=== PATIENT | female | born 1970 | race Two or more races ===

== ENCOUNTER 2017-05-07 07:37 | Emergency (ER) | payer OTHER ==
[2017-05-07 07:48] VITALS: TEMP 98.2; BMI 25.2
--- NOTE | 2017-05-07 09:33 | PDOC ---
History of Present Illness - General History Source: Patient Exam Limitations: No Limitations - History of Present Illness Initial Comments: 05/07/17 13:21 The patient is a 47 year old female with a significant PMH of gastritis, unknown 'ovarian problems' who presents to the emergency department with left sided abdominal pain that began at approximately 4PM yesterday. Patient describes the LLQ pain as constant, non-radiating that worsens when walking or bending over and improves with lying down. The patient states she has the LLQ pain woke her up from her sleep last night. The patient denies N/V, any changes in bowel movement, hematuria, or blood in stool. Her LMP was Apr 27. The patient denies any recent exercise or heavy lifting. The patient denies similar symptoms in the past. The patient denies chest pain, shortness of breath, headache and dizziness. Denies fever, chills, nausea, vomit, diarrhea and constipation. Denies dysuria, frequency, urgency and hematuria. Allergies: NKA Past surgical history: None reported. Social history: No reported alcohol, drug, or cigarette use. PCP: Dr. Nassar <Leilani Mcgee - Last Filed: 05/07/17 13:21> <Gonzalez Kitchen - Last Filed: 05/07/17 19:07> - General Chief Complaint: Pain Stated Complaint: LT SIDE PAIN Time Seen by Provider: 05/07/17 08:35 Past History <Leilani Mcgee - Last Filed: 05/07/17 13:21> - Past Medical History COPD: No GI Disorders: Yes (GASTRITIS) - Suicide/Smoking/Psychosocial Hx Smoking History: Never smoked Have you smoked in the past 12 months: No Information on smoking cessation initiated: No Hx Alcohol Use: No Drug/Substance Use Hx: No Substance Use Type: None <Gonzalez Kitchen - Last Filed: 05/07/17 19:07> - Past Medical History Allergies/Adverse Reactions: Allergies Allergy/AdvReac Type Severity Reaction Status Date / Time No Known Allergies Allergy Verified 05/07/17 07:43 Home Medications: Ambulatory Orders levoFLOXacin [Levaquin] 750 mg PO ONCE #7 tab 05/07/17 metroNIDAZOLE [Flagyl -] 500 mg PO DAILY #14 tablet 05/07/17 Review of Systems - Review of Systems Able to Perform ROS?: Yes Comments:: 05/07/17 13:21 CONSTITUTIONAL: No reported: Fever, Chills, Diaphoresis, Generalized Weakness, Malaise, Loss of Appetite HEENT: No reported: Rhinorrhea, Nasal Congestion, Throat Pain, Throat Swelling, Difficulty Swallowing, Mouth Swelling, Ear Pain, Eye Pain, Visual Changes CARDIOVASCULAR: No reported: Chest Pain, Syncope, Palpitations, Irregular Heart Rate, Lightheadedness, Peripheral Edema RESPIRATORY: No reported: Cough, Shortness of Breath, SOB with Exertion, Orthopnea, Wheezing , Stridor, Hemoptysis GASTROINTESTINAL: No reported: Abdominal Distension, Nausea, Vomiting, Diarrhea, Constipation, Melena, Hematochezia Reported: LLQ pain. GENITOURINARY: No reported: Dysuria, Frequency, Urgency, Hesitancy, Flank Pain, Genital Pain MUSCULOSKELETAL: No reported: Myalgia, Arthralgia, Joint Swelling, Back pain, Neck Pain SKIN: No reported: Rash, Itching, Pallor HEMEATOLOGIC/IMMUNOLOGIC: No reported: Easy Bleeding, Easy Bruising, Lymphadenopathy, Frequent infections ENDOCRINE: No reported: Unexplained Weight Gain, Unexplained Weight Loss, Heat Intolerance , Cold Intolerance NEUROLOGIC: No reported: Headache, Focal Weakness, Paresthesias, Vertigo, Lightheadedness, Unsteady Gait, Seizure, Mental Status Changes, Incontinence PSYCHIATRIC: No reported: Anxiety, Depression <Leilani Mcgee - Last Filed: 05/07/17 13:21> *Physical Exam - Vital Signs Last Vital Signs Temp Pulse Resp BP Pulse Ox 98.2 F 83 18 104/72 100 05/07/17 07:44 05/07/17 11:44 05/07/17 07:44 05/07/17 11:44 05/07/17 11:44 - Physical Exam Comments: 05/07/17 13:21 GENERAL: The patient is awake, alert, and fully oriented, Nontoxic - in no acute distress. HEAD: Normocephalic, atraumatic. EYES: extraocular movements intact, sclera anicteric, conjunctiva clear. ENT: Normal voice, Moist mucous membranes. NECK: Normal range of motion, supple LUNGS: Breath sounds equal, clear to auscultation bilaterally. No wheezes, no rhonchi, no rales. HEART: Regular rate and rhythm, without murmur, rub or gallop. ABDOMEN: (+) LLQ tenderness. Soft, normoactive bowel sounds. No guarding, no rebound.No CVA tenderness EXTREMITIES: Normal range of motion, no edema. No clubbing or cyanosis. No cords, erythema, or tenderness. NEUROLOGICAL: No facial assymetry, Normal speech, PSYCH: Normal mood, normal affect. SKIN: Warm, Dry, normal turgor, <Leilani Mcgee - Last Filed: 05/07/17 13:21> - Vital Signs Last Vital Signs Temp Pulse Resp BP Pulse Ox 98.2 F 90 18 124/79 100 05/07/17 07:44 05/07/17 07:44 05/07/17 07:44 05/07/17 07:44 05/07/17 07:44 <Gonzalez Kitchen - Last Filed: 05/07/17 19:07> Heart Score/ECG Review - ECG Impressions Comment:: 05/07/17 10:59 Twelve-lead EKG was performed and reviewed by me. There is normal sinus rhythm with a normal rate. Rate of 84 The axis is normal. The intervals are normal. There is normal R wave progression Nonspecific T wave abnormality <Gonzalez Kitchen - Last Filed: 05/07/17 19:07> ED Treatment Course - LABORATORY CBC & Chemistry Diagram: 05/07/17 10:00 05/07/17 10:00 - ADDITIONAL ORDERS Additional order review: Laboratory Results 05/07/17 05/07/17 05/07/17 10:23 10:00 10:00 Sodium 139 Potassium 4.0 Chloride 105 Carbon Dioxide 27 Anion Gap 7 L BUN 7 Creatinine 0.3 L Creat Clearance w eGFR > 60 Random Glucose 91 Calcium 8.9 Total Bilirubin 0.8 AST 21 ALT 37 Alkaline Phosphatase 68 Total Protein 6.9 Albumin 3.8 Serum , Qual Negative Urine Color Colorless Urine Appearance Clear Urine pH 7.0 Ur Specific [place] 1.005 Urine Protein Negative Urine Glucose (UA) Negative Urine Ketones Negative Urine Blood 1+ H Urine Nitrite Negative Urine Bilirubin Negative Urine Urobilinogen Negative Ur Leukocyte Esterase Negative Urine WBC (Auto) <1 Urine RBC (Auto) <1 Ur Epithelial Cells Rare Urine Bacteria Rare 05/07/17 10:00 RBC 4.26 MCV 92.7 MCHC 32.9 RDW 13.5 MPV 9.7 Neutrophils % 82.1 Lymphocytes % 11.3 Monocytes % 5.8 Eosinophils % 0.5 Basophils % 0.3 <Leilani Mcgee - Last Filed: 05/07/17 13:21> - LABORATORY CBC & Chemistry Diagram: 05/07/17 10:00 05/07/17 10:00 <Gonzalez Kitchen - Last Filed: 05/07/17 19:07> Medical Decision Making - Medical Decision Making 05/07/17 09:28 47y F pmhx gastritis, 'ovarian problems', presents with L sided abdomnal pain that started approx 4pm yesterday, Pain is constant, nonradiating, worse when sh eis walking or bendering over, improved with lying down. Pt endorses having pain last night. no associated f/c, cp, cough, n/v, hematuria, diarrhea, bpr, melena, on exam pt with pain in the LLQ mild LCVA tenderness no rebound/guarding ddx: kidney stone, uti, diverticulitis, ovarian cyst will r/o will ck ua, cbc, cmp pt declines pain meds at this time A portion of this note was documented by scribe services under my direction. I have reviewed the details of the note, within reason, and agree with the documentation with the following case summary and management plan written by me 05/07/17 14:[address] noted for acute diverticulitis labs reviewed no systemic complaints including fever no signs of complications on dCT including abcess/perf i feel pt would be a good outpatient candidate will give her some abx will reassess and possible dc <Gonzalez Kitchen - Last Filed: 05/07/17 19:07> *DC/Admit/Observation/Transfer - Attestations Scribe Attestion: 05/07/17 13:22 Documentation prepared by Leilani Mcgee, acting as medical staff credentialing coordinator for Gonzalez Kitchen MD. <Leilani Mcgee - Last Filed: 05/07/17 13:21> - Discharge Dispostion Admit: No <Gonzalez Kitchen - Last Filed: 05/07/17 19:07> Diagnosis at time of Disposition: Diverticulitis - Discharge Dispostion Disposition: HOME Condition at time of disposition: Improved - Referrals Referrals: Mónica Nassar [Primary Care Provider] - - Patient Instructions Printed Discharge Instructions: DI for Diverticulitis Additional Instructions: You have diverticulitis. Take the antibiotics as prescribed. You may take some Tylenol for the pain. Return to the emergency department immediately with ANY new, persistent or worsening symptoms including worsening abdominal pain, fevers, inability to tolerate oral intake, or any other concerns. Stay well hydrated. You MUST call and follow up with your doctor or GI doctor within 3-4 days. Your emergency department visit is not complete without a followup with your doctor for reevaluation. Please make sure your doctor reviews the results of your emergency evaluation. Print Language: CROATIAN - Post Discharge Activity
[2017-05-07 10:28] LABS: BASO % 0.3 % (0-2.0); EOS % 0.5 % (0-4.5); HEMATOCRIT 39.5 % (32.4-45.2); LYMPH % 11.3 % (8-40); MCH 30.5 pg (25.7-33.7); MCHC 32.9 g/dl (32.0-36.0); MEAN CELL VOLUME 92.7 fl (80-96); MEAN PLT VOLUME 9.7 fl (7.5-11.1); MONO % 5.8 % (3.8-10.2); NEUT % 82.1 % (42.8-82.8); PLATELET COUNT 211 K/MM3 (134-434); RBC 4.26 M/mm3 (3.60-5.2); RDW 13.5 % (11.6-15.6); WHITE BLOOD COUNT 10.9 K/mm3 (4.0-10.0)
[2017-05-07 11:04] LABS: URINE APPEARANCE CLEAR; URINE BILIRUBIN NEGATIVE (NEGATIVE); URINE BLOOD 1+ (NEGATIVE); URINE COLOR COLORLESS; URINE GLUCOSE (UA) NEGATIVE (NEGATIVE); URINE KETONE NEGATIVE (NEGATIVE); URINE LEUK ESTERASE NEGATIVE (NEGATIVE); URINE NITRITE NEGATIVE (NEGATIVE); URINE PROTEIN NEGATIVE (NEGATIVE); URINE UROBILINOGEN NEGATIVE mg/dL (0.2-1.0)
[2017-05-07 11:32] LABS: ALBUMIN 3.8 g/dl (3.4-5.0); ANION GAP 7 (8-16); BLOOD UREA NITROGEN 7 mg/dL (7-18); CALCIUM 8.9 mg/dL (8.5-10.1); CHLORIDE 105 mmol/L (98-107); CO2 27 mmol/L (21-32); CREATININE 0.3 mg/dL (0.55-1.02); GLUCOSE,RANDOM 91 mg/dL (74-106); SGOT/AST 21 U/L (15-37); SGPT/ALT 37 U/L (12-78); SODIUM 139 mmol/L (136-145)
[2017-05-07 11:34] LABS: ALK PHOS 68 U/L (45-117); BILIRUBIN,TOTAL 0.8 mg/dL (0.2-1.0); TOT PROT 6.9 g/dl (6.4-8.2)
[2017-05-07 11:36] LABS: EPI CELLS RARE /HPF (FEW); URINE BACTERIA RARE /hpf (NONE SEEN)
--- NOTE | 2017-05-07 14:10 | EKG ---
Test Reason : Blood Pressure : / mmHG Vent. Rate : 084 BPM Atrial Rate : 084 BPM P-R Int : 152 ms QRS Dur : 078 ms QT Int : 384 ms P-R-T Axes : 062 047 041 degrees QTc Int : 453 ms NORMAL SINUS RHYTHM T WAVE ABNORMALITY, CONSIDER ANTERIOR ISCHEMIA ABNORMAL ECG WHEN COMPARED WITH ECG OF 04-AUG-2007 16:48, T WAVE INVERSION NOW EVIDENT IN ANTERIOR LEADS Confirmed by MD Tommy, Brent ([id number]) on 05/07/2017 2:09:30 PM Referred By: Confirmed By:Brent Sanders MD
[2017-05-07 16:17] VITALS: BP 96/48; PULSE 92
== END 2017-05-07 17:21 | disposition home or self-care (01) ==
LOC: JER 07:37
DX: K57.92 Diverticulitis of intestine, part unspecified, without perforation or abscess without bleeding (principal)
CPT/HCPCS: 36415; 74176; 80053; 81003; 81015; 84703; 85025; 93005; 93010; 96365; 96368; 99283-25

== ENCOUNTER 2017-12-25 09:03 | Emergency (ER) | payer OTHER ==
[2017-12-25 09:11] VITALS: BP 136/77; PULSE 88; TEMP 98.5; BMI 25.0
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
== END 2017-12-25 09:56 | disposition home or self-care (01) ==
LOC: JERFT 09:03
DX: S13.4XXA Sprain of ligaments of cervical spine, initial encounter (principal); V43.52XA Car driver injured in collision with other type car in traffic accident, initial encounter; Y92.412 Parkway as the place of occurrence of the external cause; Y93.89 Activity, other specified; Y99.8 Other external cause status
CPT/HCPCS: 99281-25

== ENCOUNTER 2018-11-10 22:52 | Inpatient (IN) | payer OTHER ==
--- NOTE | 2018-11-10 23:40 | PDOC ---
History of Present Illness - General Chief Complaint: Pain Stated Complaint: ABD PAIN Time Seen by Provider: 11/10/18 23:36 History Source: Patient - History of Present Illness Initial Comments: 11/10/18 23:37 48 year old female c/o suprapubic pain when the pain started today. c/o diarrhea and subjective fever x 3 days.denies diarrhea now, dysuria, flank pain just visited [facility] week ago. PMHXdiverticulitis, high cholesterol, gastritis 11/10/18 23:39 Past History - Past Medical History Allergies/Adverse Reactions: Allergies Allergy/AdvReac Type Severity Reaction Status Date / Time No Known Allergies Allergy Verified 12/25/17 09:11 Home Medications: Ambulatory Orders Cyclobenzaprine HCl 10 mg PO Q8H PRN #14 tablet 12/25/17 Naproxen [Naprosyn -] 500 mg PO BID #30 tablet 12/25/17 CVA: No COPD: No GI Disorders: Yes (GASTRITIS) - Suicide/Smoking/Psychosocial Hx Smoking History: Never smoked Have you smoked in the past 12 months: No Hx Alcohol Use: No Drug/Substance Use Hx: No Substance Use Type: None Review of Systems - Review of Systems Able to Perform ROS?: Yes Is the patient limited Thai proficient: No Constitutional: Yes: Fever HEENTM: No: Symptoms Reported, See HPI, Eye Pain, Blurred Vision, Tearing, Recent change in vision, Double Vision, Cataracts, Ear Pain, Ocular Prothesis, Ear Discharge, Nose Pain, Nose Congestion, Tinnitus, Nose Bleeding, Hearing Loss , Throat Pain, Throat Swelling, Mouth Pain, Dental Problems, Difficulty Swallowing, Mouth Swelling, Other Respiratory: No: Symptoms reported, See HPI, Cough, Orthopnea, Shortness of Breath, SOB with Exertion, SOB at Rest, Stridor, Wheezing, Productive cough, Hemoptysis, Other Cardiac (ROS): No: Symptoms Reported, See HPI, Chest Pain, Edema, Irregular Heart Rate, Lightheadedness, Palpitations, Syncope, Chest Tightness, Other ABD/GI: Yes: Diarrhea, Other (suprapubic pain) Musculoskeletal: No: Symptoms Reported, See HPI, Back Pain, Gout, Joint Pain, Joint Swelling, Muscle Pain, Muscle Weakness, Neck Pain, Joint Stiffness, Other Integumentary: No: Symptoms Reported, See HPI, Bruising, Change in Color, Change in Hair/Nails, Dryness, Erythema, Flushing, Lesions, Lumps, Pallor, Pruritus, Rash, Sweating, Other *Physical Exam - Vital Signs Last Vital Signs Temp Pulse Resp BP Pulse Ox 100 F H 117 H 20 139/81 96 11/10/18 23:03 11/10/18 23:03 11/10/18 23:03 11/10/18 23:03 11/10/18 23:03 - Physical Exam General Appearance: Yes: Appropriately Dressed Respiratory/Chest: positive: Lungs Clear, Normal Breath Sounds Cardiovascular: positive: Tachycardia Gastrointestinal/Abdominal: positive: Normal Bowel Sounds, Tender (lower abdominal pain), Soft Musculoskeletal: positive: Normal Inspection Extremity: positive: Normal Capillary Refill, Normal Inspection, Normal Range of Motion Integumentary: positive: Normal Color, Dry, Warm, Other (flushed) Neurologic: positive: Fully Oriented, Alert ED Treatment Course - LABORATORY CBC & Chemistry Diagram: 11/11/18 00:10 11/11/18 00:10 Progress Note - Progress Note Progress Note: A: abdominal pain P: blood culture blood parasite exam cbc cmp ua urine culture CTAP: acute diverticulitis left hydrosalphyx. patient to be admitted to the hospital for further management of care. patient signed out to Paula Lott NP *DC/Admit/Observation/Transfer Diagnosis at time of Disposition: Abdominal pain Qualifiers: Abdominal location: lower abdomen, unspecified Qualified Code(s): R10.30 - Lower abdominal pain, unspecified Diverticulitis large intestine Qualifiers: Diverticulitis bleeding: without bleeding Diverticulitis complication: without perforation or abscess Qualified Code(s): K57.32 - Diverticulitis of large intestine without perforation or abscess without bleeding - Discharge Dispostion Decision to Admit order: Yes - Referrals Referrals: Mónica Nassar [Primary Care Provider] - - Patient Instructions - Post Discharge Activity
--- NOTE | 2018-11-10 23:44 | PDOC ---
*Physical Exam - Vital Signs Last Vital Signs Temp Pulse Resp BP Pulse Ox 100 F H 117 H 20 139/81 96 11/10/18 23:03 11/10/18 23:03 11/10/18 23:03 11/10/18 23:03 11/10/18 23:03 Medical Decision Making - Medical Decision Making 11/10/18 23:44 Patient seen by the advanced practice provider under my direct supervision. Ancillary testing reviewed as necessary. I agree with plan as outlined by the advanced practice provider. *DC/Admit/Observation/Transfer Diagnosis at time of Disposition: Abdominal pain - Referrals Referrals: Mónica Nassar [Primary Care Provider] - - Patient Instructions - Post Discharge Activity
[2018-11-10] MEDS ORDERED: ACETAMINOPHEN 1000 MG/100 ML VIAL (NON FORMULARY) IVPB ONE (23:45)
[2018-11-10] MEDS ORDERED: SODIUM CHLORIDE 1,000 ML IV STA (23:45)
[2018-11-11] MEDS ORDERED: ACETAMINOPHEN INJECTION 100 ML IVPB ONE (00:05)
[2018-11-11 00:46] LABS: BASO % 0.5 % (0-2.0); EOS % 0.3 % (0-4.5); HEMATOCRIT 41.5 % (32.4-45.2); HEMOGLOBIN 13.8 GM/dL (10.7-15.3); LYMPH % 12.3 % (8-40); MCHC 33.2 g/dl (32.0-36.0); MEAN CELL VOLUME 93.4 fl (80-96); MEAN PLT VOLUME 9.9 fl (7.5-11.1); MONO % 6.5 % (3.8-10.2); NEUT % 80.4 % (42.8-82.8); PLATELET COUNT 238 K/MM3 (134-434); RBC 4.44 M/mm3 (3.60-5.2); RDW 13.7 % (11.6-15.6); WHITE BLOOD COUNT 11.8 K/mm3 (4.0-10.0)
[2018-11-11 01:23] LABS: URINE APPEARANCE CLEAR; URINE BILIRUBIN NEGATIVE (NEGATIVE); URINE COLOR YELLOW; URINE GLUCOSE (UA) NEGATIVE (NEGATIVE); URINE KETONE NEGATIVE (NEGATIVE); URINE LEUK ESTERASE NEGATIVE (NEGATIVE); URINE NITRITE NEGATIVE (NEGATIVE); URINE PROTEIN NEGATIVE (NEGATIVE); URINE UROBILINOGEN 0.2 mg/dL (0.2-1.0)
[2018-11-11 01:26] LABS: EPI CELLS NONE SEEN /HPF (0-5/HPF); HYALINE CASTS NONE SEEN /lpf (0-8); URINE BACTERIA NONE SEEN /hpf (NEGATIVE); URINE RBC 2 /hpf (0-4); URINE WBC NONE SEEN /hpf (0-5)
[2018-11-11 01:31] LABS: ALBUMIN 3.9 g/dl (3.4-5.0); BILIRUBIN,TOTAL 0.8 mg/dL (0.2-1); BLOOD UREA NITROGEN 6.9 mg/dL (7-18); CALCIUM 9.3 mg/dL (8.5-10.1); CREATININE 0.5 mg/dL (0.55-1.3); POTASSIUM 4.4 mmol/L (3.5-5.1); TOT PROT 7.6 g/dl (6.4-8.2)
--- NOTE | 2018-11-11 05:05 | HP ---
Admitting History and Physical - Primary Care Physician PCP: Mónica Nassar A - Admission Chief Complaint: Suprapubic Pain, Diarrhea, Fever History of Present Illness: This is a 48 y/o woman with a PMhx of Diverticulitis, Gastritis, H- Pylori, HLD. Who presents to the ED with suprapubic pain, subjective fevers, diarrhea. Patient reports recent travel to [place] x 1 week ago. Patient reports having fever which started last Saturday, then having watery yellow diarrhea on Saturday , with any oral intake. Patient reports having suprapubic pain with no relief with OTCs but denies dysuria. Patient reports that her last colonoscopy was 6 yrs ago unsure of the results, she also had an EGD- H-Pylori and Gastritis. Patient denies cough, CERDA, SOB, CP, palpitations, constipation, melena, hematochezia. Patient reports LMP 10/23/18 History Source: Patient Limitations to Obtaining History: No Limitations - Past Medical History Cardiovascular: Yes: Hyperlipdemia Gastrointestinal: Yes: Diverticulitis, Gastritis, Other (H-Pylori) ...LMP: 10/23/18 ...: No - Past Surgical History Additional Past Surgical History: Tubal Ligation - Smoking History Smoking history: Never smoked Have you smoked in the past 12 months: No - Alcohol/Substance Use Hx Alcohol Use: No History of Substance Use: reports: None - Social History Usual Living Arrangement: Yes: With Child ADL: Independent History of Recent Travel: Yes ([place]) Home Medications - Allergies Allergies/Adverse Reactions: Allergies Allergy/AdvReac Type Severity Reaction Status Date / Time No Known Allergies Allergy Verified 12/25/17 09:11 - Home Medications Home Medications: Ambulatory Orders Cyclobenzaprine HCl 10 mg PO Q8H PRN #14 tablet 12/25/17 Naproxen [Naprosyn -] 500 mg PO BID #30 tablet 12/25/17 Family Disease History - Family Disease History Family History: Unremarkable Review of Systems - Review of Systems Constitutional: reports: Fever, Malaise, Weakness Eyes: reports: No Symptoms HENT: reports: No Symptoms Neck: reports: No Symptoms Cardiovascular: reports: No Symptoms Respiratory: reports: No Symptoms Gastrointestinal: reports: Abdominal Pain, Diarrhea Genitourinary: reports: Other (suprapubic pain) Breasts: reports: No Symptoms Reported Musculoskeletal: reports: No Symptoms Integumentary: reports: No Symptoms Neurological: reports: No Symptoms Endocrine: reports: No Symptoms Hematology/Lymphatic: reports: No Symptoms Psychiatric: reports: No Symptoms Pain Intensity: 7 Physical Examination Vital Signs: Vital Signs Temperature 98.2 F 11/11/18 03:32 Pulse Rate 84 11/11/18 03:32 Respiratory Rate 16 11/11/18 03:32 Blood Pressure 102/57 L 11/11/18 03:32 O2 Sat by Pulse Oximetry (%) 97 11/11/18 03:32 Constitutional: Yes: Mild Distress Eyes: Yes: WNL, Conjunctiva Clear, EOM Intact, PERRL HENT: Yes: WNL, Atraumatic, Normocephalic Neck: Yes: WNL, Supple, Trachea Midline Cardiovascular: Yes: WNL, Regular Rate and Rhythm, S1, S2 Respiratory: Yes: WNL, Regular, CTA Bilaterally Gastrointestinal: Yes: Soft, Hypoactive Bowel Sounds, Tenderness (Generalized), Other (supra pubic) Renal/: Yes: WNL Breast(s): Yes: WNL Musculoskeletal: Yes: WNL Extremities: Yes: WNL Edema: No Peripheral Pulses WNL: Yes Neurological: Yes: WNL, Alert, Oriented, Cran Nerves II-XII Intact ...Motor Strength: WNL Psychiatric: Yes: WNL, Alert, Oriented Labs: CBC, BMP 11/11/18 00:10 11/11/18 00:10 Laboratory Results - last 24 hr 11/11/18 11/11/18 11/11/18 00:10 00:10 00:10 WBC 11.8 H RBC 4.44 Hgb 13.8 Hct 41.5 MCV 93.4 MCH 31.0 MCHC 33.2 RDW 13.7 Plt Count 238 MPV 9.9 Absolute Neuts (auto) 9.5 H Neutrophils % 80.4 Lymphocytes % 12.3 Monocytes % 6.5 Eosinophils % 0.3 Basophils % 0.5 Nucleated RBC % 0 Sodium 137 Potassium 4.4 Chloride 104 Carbon Dioxide 25 Anion Gap 9 BUN 6.9 L Creatinine 0.5 L Est GFR (CKD-EPI)AfAm 132.65 Est GFR (CKD-EPI)NonAf 114.45 Random Glucose 99 Calcium 9.3 Total Bilirubin 0.8 AST 31 ALT 50 Alkaline Phosphatase 79 Total Protein 7.6 Albumin 3.9 Total Amylase 43 Lipase 82 Cancelled Urine Color Urine Appearance Urine pH Ur Specific [place] Urine Protein Urine Glucose (UA) Urine Ketones Urine Blood Urine Nitrite Urine Bilirubin Urine Urobilinogen Ur Leukocyte Esterase Urine WBC (Auto) Urine RBC (Auto) Urine Casts (Auto) U Epithel Cells (Auto) Urine Bacteria (Auto) Urine HCG, Qual 11/11/18 11/11/18 00:35 00:35 WBC RBC Hgb Hct MCV MCH MCHC RDW Plt Count MPV Absolute Neuts (auto) Neutrophils % Lymphocytes % Monocytes % Eosinophils % Basophils % Nucleated RBC % Sodium Potassium Chloride Carbon Dioxide Anion Gap BUN Creatinine Est GFR (CKD-EPI)AfAm Est GFR (CKD-EPI)NonAf Random Glucose Calcium Total Bilirubin AST ALT Alkaline Phosphatase Total Protein Albumin Total Amylase Lipase Urine Color Yellow Urine Appearance Clear Urine pH 6.0 Ur Specific [place] 1.005 L Urine Protein Negative Urine Glucose (UA) Negative Urine Ketones Negative Urine Blood Trace Urine Nitrite Negative Urine Bilirubin Negative Urine Urobilinogen 0.2 Ur Leukocyte Esterase Negative Urine WBC (Auto) None seen Urine RBC (Auto) 2 Urine Casts (Auto) None seen U Epithel Cells (Auto) None seen Urine Bacteria (Auto) None seen Urine HCG, Qual Negative Intake & Output 11/08/18 11/09/18 11/10/18 11/11/18 23:59 23:59 23:59 23:59 Weight 68.039 kg Imaging - Results Chest X-ray: Pending Cat Scan: Report Reviewed (Acute Diverticulitis), Image Reviewed Ultrasound: Pending Problem List - Problems (1) Diverticulitis Assessment/Plan: CTAP- Acute Diverticulitis WBC 11.8 T Max 100.0 Blood Cultures- pending Lactic Acid-pending Levaquin, Flagyl given in ED, will continue Appreciate ID consult Appreciate GI consult Continue IVF Clear Liquid Diet Pain Control Monitor CBC, BMP Monitor vitals Code(s): K57.92 - DVTRCLI OF INTEST, PART UNSP, W/O PERF OR ABSCESS W/O BLEED (2) Abdominal pain Assessment/Plan: see above Transvaginal US-pending r/o Ovarian Torsion Code(s): R10.9 - UNSPECIFIED ABDOMINAL PAIN Qualifiers: Abdominal location: lower abdomen, unspecified Qualified Code(s): R10.30 - Lower abdominal pain, unspecified (3) Diarrhea Assessment/Plan: r/o Traveler's secondary recent trip to [place] O&P Stool Culture Stool occult CTAP- Acute Diverticulitis Monitor CBC, BMP Monitor vitals Continue IVF Code(s): R19.7 - DIARRHEA, UNSPECIFIED (4) Gastritis Assessment/Plan: Continue PPI Code(s): K29.70 - GASTRITIS, UNSPECIFIED, WITHOUT BLEEDING (5) HLD (hyperlipidemia) Assessment/Plan: stable No current medication Code(s): E78.5 - HYPERLIPIDEMIA, UNSPECIFIED Assessment/Plan This is a 48 y/o woman with a PMHx of Diverticulitis, Gastritis, HLD. Admitted for Acute Diverticulitis, Diarrhea for further evaluation of their emergent condition. Plan: See problem list FEN NS@75ml/hr Replete lytes prn Clear Diet DVT ppx OOB SCDs Heparin SQ Code Status: Full Code Dispo: Requires Inpatient Care Visit type - Emergency Visit Emergency Visit: Yes ED Registration Date: 11/11/18 Care time: The patient presented to the Emergency Department on the above date and was hospitalized for further evaluation of their emergent condition. - New Patient This patient is new to me today: Yes Date on this admission: 11/11/18 - Critical Care Critical Care patient: No
[2018-11-11] MEDS: SODIUM CHLORIDE 1,000 ML IV SCH (05:50)
[2018-11-11] MEDS ORDERED: ACETAMINOPHEN 1000 MG/100 ML VIAL (NON FORMULARY) IVPB PRN (08:33)
--- NOTE | 2018-11-11 08:59 | CON.GI ---
Consult Consult Specialty:: GI Referred by:: Clem Lott NP Reason for Consultation:: Acute diverticulitis - History of Present Illness History of Present Illness: Patient seen in the ER PCP: Evelyn Nassar Patient is a 48 y/o female with past medical history of Diverticulitis, Gastritis, H. Pylori. Patient presented to ER with complaints of lower abdominal pain accompanied with diarrhea. Patient says on Saturday she had 6 episodes of non-bloody diarrhea after she ate. On Saturday she says she felt fine and denied diarrhea. On Saturday she developed lower abdominal pain, non- radiating and exacerbated with movement but no diarrhea. She has recent travel to [place] and returned 1 weel ago. Denies dysphagia, nausea, vomiting, rectal bleeding, blood in stool. In ER she was noted with fever over night and leukocytosis. Pending official read of abdomen/pelvic CT scan. - History Source History Provided By: Patient Limitations to Obtaining History: No Limitations - Past Medical History Cardio/Vascular: Yes: Hyperlipdemia Gastrointestinal: Yes: Diverticulitis, Gastritis, Other (H-Pylori) ...LMP: 10/23/18 ...: No - Past Surgical History Past Surgical History: Yes: , Tubal Ligation - Alcohol/Substance Use Hx Alcohol Use: No History of Substance Use: reports: None - Smoking History Smoking history: Never smoked Have you smoked in the past 12 months: No - Social History ADL: Independent History of Recent Travel: Yes ([place]) Home Medications - Allergies Allergies/Adverse Reactions: Allergies Allergy/AdvReac Type Severity Reaction Status Date / Time No Known Allergies Allergy Verified 12/25/17 09:11 - Home Medications Home Medications: Ambulatory Orders Cyclobenzaprine HCl 10 mg PO Q8H PRN #14 tablet 12/25/17 Naproxen [Naprosyn -] 500 mg PO BID #30 tablet 12/25/17 Review of Systems - Review of Systems Constitutional: reports: No Symptoms Eyes: reports: No Symptoms HENT: reports: No Symptoms Neck: reports: No Symptoms Cardiovascular: reports: No Symptoms Respiratory: reports: No Symptoms Gastrointestinal: reports: Abdominal Pain, Diarrhea Genitourinary: reports: No Symptoms Breasts: reports: No Symptoms Reported Musculoskeletal: reports: No Symptoms Integumentary: reports: No Symptoms Neurological: reports: No Symptoms Endocrine: reports: No Symptoms Hematology/Lymphatic: reports: No Symptoms Psychiatric: reports: No Symptoms Physical Exam-GI Vital Signs: Vital Signs Temperature 98.0 F 11/11/18 06:50 Pulse Rate 80 11/11/18 06:50 Respiratory Rate 16 11/11/18 03:32 Blood Pressure 100/65 11/11/18 06:50 O2 Sat by Pulse Oximetry (%) 98 11/11/18 06:50 Constitutional: Yes: No Distress, Calm Eyes: Yes: Conjunctiva Clear HENT: Yes: Atraumatic Cardiovascular: Yes: Regular Rate and Rhythm Respiratory: Yes: Regular, CTA Bilaterally Gastrointestinal Inspection: Yes: WNL. No: Ascites, Distention, Hernia, Scars, Other ...Auscultate: Yes: Normoactive Bowel Sounds. No: Hyperactive Bowel Sounds, Hypoactive Bowel Sounds, No Bowel Sounds, Other ...Palpate: Yes: Soft, Tenderness (diffuse tenderness). No: Firm/Rigid, Guarding, Hepatomegaly, Mass, Pulsatile Mass, Splenomegaly, Tenderness, Epigastium, Tenderness, Rebound, Other ...Percussion: Yes: Tympanitic. No: Dullness, Fluid Wave, Other Neurological: Yes: Alert, Oriented Psychiatric: Yes: Alert, Oriented Labs: CBC, BMP 11/11/18 00:10 11/11/18 00:10 Active Medications Generic Name Dose Route Start Last Admin Trade Name Freq PRN Reason Stop Dose Admin Acetaminophen 1,000 mg 11/11/18 08:33 Ofirmev Injection - IVPB Q6H PRN PAIN OR FEVER Heparin Sodium (Porcine) 5,000 unit 11/11/18 10:00 Heparin - SQ BID MADHAV Sodium Chloride 1,000 mls @ 75 mls/hr 11/11/18 05:00 11/11/18 05:50 Normal Saline - IV 75 mls/hr ASDIR MADHAV Administration Metronidazole 500 mg in 100 mls @ 100 mls/hr 11/11/18 12:00 Flagyl 500mg Premixed Ivpb - IVPB Q8H-IV MADHAV Levofloxacin 750 mg in 150 mls @ 150 mls/hr 11/12/18 10:00 Levaquin 750 Mg Premixed Ivpb - IVPB DAILY MADHAV Protocol Imaging - Results Cat Scan: Pending Problem List - Problems (1) Abdominal pain Assessment/Plan: possibly infectious diarrhea R> stool ova and parasites, culture and c diff continue IV antibioitics advance diet to low fiber lactose free diet in am Code(s): R10.9 - UNSPECIFIED ABDOMINAL PAIN Qualifiers: Abdominal location: lower abdomen, unspecified Qualified Code(s): R10.30 - Lower abdominal pain, unspecified
[2018-11-11] MEDS ORDERED: HEPARIN NA (PORCINE) 5,000 UNITS/ML 1ML VIAL ONE (10:52)
[2018-11-11] MEDS: HEPARIN NA (PORCINE) 5,000 UNITS/ML 1ML VIAL SQ SCH ×2 (10:54→22:01)
--- NOTE | 2018-11-11 16:02 | PN ---
Progress Note (short form) - Note Progress Note: ID consult dictated imp/reccd 48 yo female with prior history of h pylori, gastritis, diverticulitis admitted with pelvic pain ct scan with acute sigmoid diverticulitis and left hydrosalpinx fever of 100 in ed yesterday had diarrhea at home that has resolved-last episode on Saturday recent trip to [place]- returned last Saturday (8 days ago) received ivf and levaquin and flagyl in ED ct scan with sigmoid diverticulitis and left hydrosallpinx suggest rocephin/flagyl, stool w/u if she has further diarrhea gi eval gyne eval f/u cultures Problem List - Problems (1) Sigmoid diverticulitis Code(s): K57.32 - DVTRCLI OF LG INT W/O PERFORATION OR ABSCESS W/O BLEEDING (2) Hydrosalpinx Code(s): N70.11 - CHRONIC SALPINGITIS
[2018-11-11] MEDS: CEFTRIAXONE 1 GM in DEXTROSE 5%-WATER - 50 ML IVPB SCH (16:14)
--- NOTE | 2018-11-11 17:00 | PN ---
Progress Note, Physician Chief Complaint: Abdominal Pain Diverticulitis History of Present Illness: Previous notes and events reviewed awake and alert NAD sts abdominal pain is improving denies further episodes of diarrhea - Current Medication List Current Medications: Active Medications Acetaminophen (Ofirmev Injection -) 1,000 mg IVPB Q6H PRN PRN Reason: PAIN OR FEVER Heparin Sodium (Porcine) (Heparin -) 5,000 unit SQ BID MADHAV Last Admin: 11/11/18 10:54 Dose: 5,000 unit Sodium Chloride (Normal Saline -) 1,000 mls @ 75 mls/hr IV ASDIR MADHAV Last Admin: 11/11/18 05:50 Dose: 75 mls/hr Metronidazole (Flagyl 500mg Premixed Ivpb -) 500 mg in 100 mls @ 100 mls/hr IVPB Q8H-IV MADHAV Last Admin: 11/11/18 11:15 Dose: 100 mls/hr Ceftriaxone Sodium 1 gm/ (Dextrose) 50 mls @ 100 mls/hr IVPB DAILY [facility]; Protocol - Objective Vital Signs: Vital Signs Temperature 98.0 F 11/11/18 06:50 Pulse Rate 80 11/11/18 06:50 Respiratory Rate 16 11/11/18 03:32 Blood Pressure 100/65 11/11/18 06:50 O2 Sat by Pulse Oximetry (%) 98 11/11/18 06:50 Constitutional: Yes: No Distress, Calm Eyes: Yes: Conjunctiva Clear HENT: Yes: Atraumatic Cardiovascular: Yes: Regular Rate and Rhythm Respiratory: Yes: Regular, CTA Bilaterally Gastrointestinal: Yes: Normal Bowel Sounds, Soft, Tenderness (lower abdomen) Musculoskeletal: Yes: WNL Extremities: Yes: WNL Edema: No Neurological: Yes: Alert, Oriented Psychiatric: Yes: Alert, Oriented Labs: CBC, BMP 11/11/18 00:10 11/11/18 00:10 Microbiology 11/11/18 00:10 Blood - Peripheral Venous Blood Parasites Smear - Final <Daija Liz - Last Filed: 11/11/18 19:46> - Current Medication List Current Medications: Active Medications Acetaminophen (Ofirmev Injection -) 1,000 mg IVPB Q6H PRN PRN Reason: PAIN OR FEVER Heparin Sodium (Porcine) (Heparin -) 5,000 unit SQ BID MADHAV Last Admin: 11/12/18 10:19 Dose: 5,000 unit Sodium Chloride (Normal Saline -) 1,000 mls @ 75 mls/hr IV ASDIR MADHAV Last Admin: 11/12/18 00:05 Dose: Not Given Metronidazole (Flagyl 500mg Premixed Ivpb -) 500 mg in 100 mls @ 100 mls/hr IVPB Q8H-IV MADHAV Last Admin: 11/12/18 17:40 Dose: 100 mls/hr Ceftriaxone Sodium 1 gm/ (Dextrose) 50 mls @ 100 mls/hr IVPB DAILY MADHAV; Protocol Last Admin: 11/12/18 10:17 Dose: 100 mls/hr - Objective Vital Signs: Vital Signs Temperature 98.2 F 11/12/18 15:00 Pulse Rate 70 11/12/18 15:00 Respiratory Rate 18 11/12/18 15:00 Blood Pressure 101/55 L 11/12/18 15:00 O2 Sat by Pulse Oximetry (%) 99 11/12/18 09:00 Labs: CBC, BMP 11/12/18 07:18 11/12/18 07:18 <Lisandro Corrigan - Last Filed: 11/12/18 19:30> Problem List - Problems (1) Abdominal pain Assessment/Plan: -GI on board -leukocytosis -afebrile -Ceftriaxone, Metronidazole -CT scan shows fatty liver, diverticulosis coli with acute diverticulitis involving the proximal sigmoid colon without gross extraluminal air or abscess formation, partially ruptured/involuted left adnexal cyst/follcile measuring 1.8cm , tubular like cystic density along the left lateral margin of uterus measuring 4.6 x 2.5cm, unclear whether represent bilateral ovarian cyst vs hydrosalpinx -Transvaginal US shows normal size uterus, normal thickness of endometrial stripe, tubular cystic density in eleft adnexa suggestive of hydrosalpinx, normal appearing left pvary with suggestion small cyst follicle 7mm -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 Code(s): R10.9 - UNSPECIFIED ABDOMINAL PAIN Qualifiers: Abdominal location: lower abdomen, unspecified Qualified Code(s): R10.30 - Lower abdominal pain, unspecified (2) HLD (hyperlipidemia) Code(s): E78.5 - HYPERLIPIDEMIA, UNSPECIFIED (3) Diarrhea Assessment/Plan: -stool cultures ordered -GI on board -Ceftriaxone, Metronidazole -CT scan shows fatty liver, diverticulosis coli with acute diverticulitis involving the proximal sigmoid colon without gross extraluminal air or abscess formation, partially ruptured/involuted left adnexal cyst/follcile measuring 1.8cm , tubular like cystic density along the left lateral margin of uterus measuring 4.6 x 2.5cm, unclear whether represent bilateral ovarian cyst vs hydrosalpinx -no leukocytosis -afebrile Code(s): R19.7 - DIARRHEA, UNSPECIFIED <Daija Liz - Last Filed: 11/11/18 19:46> - Problems (1) Abdominal pain Code(s): R10.9 - UNSPECIFIED ABDOMINAL PAIN Qualifiers: Abdominal location: lower abdomen, unspecified Qualified Code(s): R10.30 - Lower abdominal pain, unspecified <Lisandro Corrigan - Last Filed: 11/12/18 19:30> Assessment/Plan see problem list dvt ppx <Daija Liz - Last Filed: 11/11/18 19:46>
[2018-11-11] MEDS ORDERED: CEFTRIAXONE 1 GM/50 ML BAG ONE (18:03)
[2018-11-12] MEDS: SODIUM CHLORIDE 1,000 ML IV SCH (00:05)
[2018-11-12 04:09] VITALS: BMI 26.9
[2018-11-12 07:47] LABS: BASO % 0.3 % (0-2.0); EOS % 2.5 % (0-4.5); HEMATOCRIT 34.9 % (32.4-45.2); HEMOGLOBIN 11.8 GM/dL (10.7-15.3); LYMPH % 26.5 % (8-40); MCH 31.6 pg (25.7-33.7); MCHC 33.8 g/dl (32.0-36.0); MEAN CELL VOLUME 93.4 fl (80-96); MEAN PLT VOLUME 9.1 fl (7.5-11.1); MONO % 8.9 % (3.8-10.2); NEUT % 61.8 % (42.8-82.8); PLATELET COUNT 207 K/MM3 (134-434); RBC 3.74 M/mm3 (3.60-5.2); RDW 13.4 % (11.6-15.6); WHITE BLOOD COUNT 4.5 K/mm3 (4.0-10.0)
[2018-11-12 08:36] LABS: BLOOD UREA NITROGEN 6.1 mg/dL (7-18); CALCIUM 8.2 mg/dL (8.5-10.1); CREATININE 0.4 mg/dL (0.55-1.3); POTASSIUM 3.6 mmol/L (3.5-5.1)
--- NOTE | 2018-11-12 08:36 | PN ---
Progress Note, Physician Chief Complaint: AWAKE ALERT EVENTS AND NOTES REVIEWED TOLERATING CLEAR LIQUIDS NO FEVER/PAIN - Current Medication List Current Medications: Active Medications Acetaminophen (Ofirmev Injection -) 1,000 mg IVPB Q6H PRN PRN Reason: PAIN OR FEVER Heparin Sodium (Porcine) (Heparin -) 5,000 unit SQ BID MADHAV Last Admin: 11/11/18 22:01 Dose: 5,000 unit Sodium Chloride (Normal Saline -) 1,000 mls @ 75 mls/hr IV ASDIR MADHAV Last Admin: 11/12/18 00:05 Dose: Not Given Metronidazole (Flagyl 500mg Premixed Ivpb -) 500 mg in 100 mls @ 100 mls/hr IVPB Q8H-IV MADHAV Last Admin: 11/12/18 01:30 Dose: 100 mls/hr Ceftriaxone Sodium 1 gm/ (Dextrose) 50 mls @ 100 mls/hr IVPB DAILY [facility]; Protocol Last Admin: 11/11/18 16:14 Dose: 100 mls/hr - Objective Vital Signs: Vital Signs Temperature 98.1 F 11/12/18 03:00 Pulse Rate 66 11/12/18 03:00 Respiratory Rate 18 11/12/18 03:00 Blood Pressure 98/60 11/12/18 03:00 O2 Sat by Pulse Oximetry (%) 99 11/11/18 21:00 Constitutional: Yes: Mild Distress Eyes: Yes: WNL HENT: Yes: WNL Neck: Yes: WNL Cardiovascular: Yes: Regular Rate and Rhythm Respiratory: Yes: WNL Gastrointestinal: Yes: Soft, Tenderness Genitourinary: Yes: WNL Musculoskeletal: Yes: WNL Extremities: Yes: WNL Edema: No Integumentary: Yes: WNL Wound/Incision: Yes: Clean/Dry Neurological: Yes: WNL ...Motor Strength: WNL Psychiatric: Yes: WNL Labs: CBC, BMP 11/12/18 07:18 11/12/18 07:18 Problem List - Problems (1) Abdominal pain Code(s): R10.9 - UNSPECIFIED ABDOMINAL PAIN Qualifiers: Abdominal location: lower abdomen, unspecified Qualified Code(s): R10.30 - Lower abdominal pain, unspecified (2) Diverticulitis large intestine Code(s): K57.32 - DVTRCLI OF LG INT W/O PERFORATION OR ABSCESS W/O BLEEDING Qualifiers: Diverticulitis bleeding: without bleeding Diverticulitis complication: without perforation or abscess Qualified Code(s): K57.32 - Diverticulitis of large intestine without perforation or abscess without bleeding Assessment/Plan IV ABX CONTINUE ADVANCE DIET TO REGULAR OOB TO CHAIR DVT PROPHYLAXIS DC PLANNING TOMORROW
[2018-11-12] MEDS ORDERED: cefTRIAXone SODIUM 1 GM VIAL ONE (10:15)
[2018-11-12] MEDS ORDERED: DEXTROSE 5%-WATER - 50 ML IVPB ONE (10:15)
[2018-11-12] MEDS: CEFTRIAXONE 1 GM in DEXTROSE 5%-WATER - 50 ML IVPB SCH (10:17)
[2018-11-12] MEDS: HEPARIN NA (PORCINE) 5,000 UNITS/ML 1ML VIAL SQ SCH ×2 (10:19→22:20)
--- NOTE | 2018-11-12 19:57 | CON.OBG ---
Consult Consult Specialty:: INFORMATICA ARCHITECT Reason for Consultation:: left hydrosalpinx - History of Present Illness History of Present Illness: 48 y/o with PMHx H Pylori, Diverticulitis, HLD presented to hospital with c/o abdominal pain. Diagnosed with diverticulitis. Today has no pain, tolerating diet, no diarrhea/constipation today. No other complaints. Pt admits to not having press tender star signal, gets pap smears with PCP. States since having her tubes tied in 2007, periods are more painful and heavy. - History Source History Provided By: Patient, Medical Record Limitations to Obtaining History: No Limitations - Past Medical History Cardio/Vascular: Yes: Hyperlipdemia Gastrointestinal: Yes: Diverticulitis, Gastritis, Other (H-Pylori) ...LMP: 10/23/18 ...: No - Past Surgical History Past Surgical History: Yes: , Tubal Ligation - Alcohol/Substance Use Hx Alcohol Use: No History of Substance Use: reports: None - Smoking History Smoking history: Never smoked Have you smoked in the past 12 months: No - Social History ADL: Independent History of Recent Travel: Yes ([place]) Home Medications - Allergies Allergies/Adverse Reactions: Allergies Allergy/AdvReac Type Severity Reaction Status Date / Time No Known Allergies Allergy Verified 12/25/17 09:11 - Home Medications Home Medications: Ambulatory Orders Cyclobenzaprine HCl 10 mg PO Q8H PRN #14 tablet 12/25/17 Naproxen [Naprosyn -] 500 mg PO BID #30 tablet 12/25/17 Family Disease History - Family Disease History Family Disease History: CA: Mother (liver) Review of Systems - Review of Systems Constitutional: reports: No Symptoms Eyes: reports: No Symptoms HENT: reports: No Symptoms Neck: reports: No Symptoms Cardiovascular: reports: No Symptoms Respiratory: reports: No Symptoms Gastrointestinal: reports: No Symptoms Genitourinary: reports: No Symptoms Breasts: reports: No Symptoms Reported Musculoskeletal: reports: No Symptoms Integumentary: reports: No Symptoms Neurological: reports: No Symptoms Endocrine: reports: No Symptoms Hematology/Lymphatic: reports: No Symptoms Psychiatric: reports: No Symptoms Physical Exam-SERVICE GIRL Vital Signs: Vital Signs Temperature 98.2 F 11/12/18 15:00 Pulse Rate 70 11/12/18 15:00 Respiratory Rate 18 11/12/18 15:00 Blood Pressure 101/55 L 11/12/18 15:00 O2 Sat by Pulse Oximetry (%) 99 11/12/18 09:00 Labs: CBC, BMP 11/12/18 07:18 11/12/18 07:18 Problem List - Problems (1) Hydrosalpinx Code(s): N70.11 - CHRONIC SALPINGITIS (2) Abdominal pain Code(s): R10.9 - UNSPECIFIED ABDOMINAL PAIN Qualifiers: Abdominal location: lower abdomen, unspecified Qualified Code(s): R10.30 - Lower abdominal pain, unspecified Assessment/Plan 48 y/o female with abd pain/diverticulitis, improving with medical therapy also found to have incidental left hydrosaplinx no acute SERVICE GIRL intervention at this time discussed removal of fallopian tubes as outpatient to f/u in my office as outpatient
[2018-11-13] MEDS: SODIUM CHLORIDE 1,000 ML IV SCH (04:50)
[2018-11-13] MEDS ORDERED: DEXTROSE 5%-WATER - 50 ML IVPB ONE (10:04)
[2018-11-13] MEDS ORDERED: cefTRIAXone SODIUM 1 GM VIAL ONE (10:04)
[2018-11-13] MEDS: CEFTRIAXONE 1 GM in DEXTROSE 5%-WATER - 50 ML IVPB SCH (10:08)
[2018-11-13] MEDS: HEPARIN NA (PORCINE) 5,000 UNITS/ML 1ML VIAL SQ SCH (10:37)
--- NOTE | 2018-11-13 13:52 | DS ---
Physical Examination Vital Signs: Vital Signs Temperature 97.8 F 11/13/18 05:39 Pulse Rate 60 11/13/18 05:39 Respiratory Rate 16 11/13/18 05:39 Blood Pressure 109/58 L 11/13/18 05:39 O2 Sat by Pulse Oximetry (%) 99 11/12/18 21:00 Constitutional: Yes: Calm Cardiovascular: Yes: Regular Rate and Rhythm, S2 Respiratory: Yes: CTA Bilaterally Gastrointestinal: Yes: Normal Bowel Sounds, Soft Edema: No Neurological: Yes: Alert, Oriented Labs: CBC, BMP 11/12/18 07:18 11/12/18 07:18 Discharge Summary Reason For Visit: DIVERTICULITIS,ABDOMINAL PAIN Current Active Problems Abdominal pain (Acute) Diarrhea (Acute) Diverticulitis large intestine (Acute) Gastritis (Acute) HLD (hyperlipidemia) (Acute) Hydrosalpinx (Acute) Other Procedures: ct scan abdomen shows left hydrosalpinx and diverticultis Hospital Course: - Primary Care Physician PCP: Mónica Nassar - Admission Chief Complaint: Suprapubic Pain, Diarrhea, Fever History of Present Illness: This is a 48 y/o woman with a PMhx of Diverticulitis, Gastritis, H- Pylori, HLD. Who presents to the ED with suprapubic pain, subjective fevers, diarrhea. Patient reports recent travel to [place] x 1 week ago. Patient reports having fever which started last Saturday, then having watery yellow diarrhea on Saturday , with any oral intake. Patient reports having suprapubic pain with no relief with OTCs but denies dysuria. Patient reports that her last colonoscopy was 6 yrs ago unsure of the results, she also had an EGD- H-Pylori and Gastritis. Patient denies cough, CERDA, SOB, CP, palpitations, constipation, melena, hematochezia. Patient reports LMP 10/23/18 in hospital iv abx diet advance seen by OBgyn as well - Instructions Referrals: Sonali Jim DO [Staff Physician] - (gynecology - call [phone] for an appointment) Disposition: HOME - Home Medications Comprehensive Discharge Medication List: Ambulatory Orders Cyclobenzaprine HCl 10 mg PO Q8H PRN #14 tablet 12/25/17 Naproxen [Naprosyn -] 500 mg PO BID #30 tablet 12/25/17
[2018-11-13 15:41] VITALS: BP 109/68; PULSE 74; TEMP 97.3
== END 2018-11-13 17:38 | disposition home or self-care (01) | DRG 244 ==
LOC: JER 22:52 → JERBED 11-11 04:44 → J8W 11-11 20:42
PROVIDERS: ADMIT Family Medicine; ATTEND Family Medicine
DX: K57.32 Diverticulitis of large intestine without perforation or abscess without bleeding (principal); E78.5 Hyperlipidemia, unspecified; K29.70 Gastritis, unspecified, without bleeding; R19.7 Diarrhea, unspecified; N70.11 Chronic salpingitis
CPT/HCPCS: 36415; 71045-TC-FY; 74177-TC; 76830-TC; 80048; 80053; 81003; 82150; 83690; 84703; 85025; 86790; 87040; 87086; 87186; 87207; 99284-25; J0131; J1644; J7030

== ENCOUNTER 2021-06-22 23:49 | Emergency (ER) | payer OTHER ==
[2021-06-22 23:59] VITALS: BP 118/74; PULSE 116; TEMP 98.1; BMI 29.2
[2021-06-23] MEDS ORDERED: LACTATED RINGERS SOLUTION 1000 ML INFUS.BAG IV ONE (00:10)
[2021-06-23] MEDS ORDERED: morphine CARPU-JECT 4 MG/1 ML DISP.SYRIN IVPUSH ONE (00:11)
[2021-06-23] MEDS ORDERED: ONDANSETRON 4 MG/2 ML VIAL IVPUSH ONE (00:12)
[2021-06-23] MEDS ORDERED: morphine SULFATE 4 MG/ML VIAL ONE (00:37)
[2021-06-23] MEDS ORDERED: ONDANSETRON 4 MG/2 ML VIAL ONE (00:37)
[2021-06-23 01:30] LABS: BASO % 0.2 % (0-2.0); EOS % 0.4 % (0-4.5); HEMATOCRIT 40.1 % (32.4-45.2); HEMOGLOBIN 13.3 GM/dL (10.7-15.3); MCH 30.3 pg (25.7-33.7); MCHC 33.1 g/dl (32.0-36.0); MEAN CELL VOLUME 91.8 fl (80-96); MEAN PLT VOLUME 9.8 fl (7.5-11.1); MONO % 5.7 % (3.8-10.2); NEUT % 81.7 % (42.8-82.8); PLATELET COUNT 227 10^3/uL (134-434); RBC 4.37 M/mm3 (3.60-5.2); RDW 13.9 % (11.6-15.6); WHITE BLOOD COUNT 12.3 K/mm3 (4.0-10.0)
[2021-06-23 01:33] LABS: CALCIUM 8.9 mg/dL (8.5-10.1)
[2021-06-23 01:34] LABS: ALBUMIN 3.8 g/dl (3.4-5.0); BLOOD UREA NITROGEN 8.4 mg/dL (7-18); MAGNESIUM 2.2 mg/dL (1.8-2.4)
[2021-06-23 01:37] LABS: CREATININE 0.5 mg/dL (0.55-1.3)
[2021-06-23 01:39] LABS: BILIRUBIN,TOTAL 0.7 mg/dL (0.2-1)
[2021-06-23 01:49] LABS: ACTIVATED PTT 35.2 SECONDS (25.2-36.5); INR 1.13 (0.83-1.09)
[2021-06-23 02:30] LABS: PH,URINE 6.5 (5.0-8.0); URINE APPEARANCE CLEAR; URINE BILIRUBIN NEGATIVE (NEGATIVE); URINE COLOR YELLOW; URINE GLUCOSE (UA) NEGATIVE (NEGATIVE); URINE KETONE NEGATIVE (NEGATIVE); URINE LEUK ESTERASE NEGATIVE (NEGATIVE); URINE NITRITE NEGATIVE (NEGATIVE); URINE PROTEIN NEGATIVE (NEGATIVE); URINE UROBILINOGEN 0.2 mg/dL (0.2-1.0)
[2021-06-23] MEDS ORDERED: AMOX TR/POT CLAV 875MG/125MG TABLETS (FP) PO ONE (03:37)
[2021-06-23] MEDS ORDERED: AMOX TR/POT CLAV 875MG/125MG TABLETS (FP) ONE (03:47)
[2021-06-23 04:40] LABS: EPI CELLS 11.1 /uL (0-25.1); HYALINE CASTS 0.39 /uL (0-3.1); URINE RBC 3.3 /uL (0-23.9); URINE WBC 0.7 /uL (0-25.8)
[2021-06-23 04:41] LABS: URINE BACTERIA 99.9 /uL (0-1359)
== END 2021-06-23 03:51 ==
LOC: JER 23:49
PROC: 3E033GC Introduction of Other Therapeutic Substance into Peripheral Vein, Percutaneous Approach (ICD-10-PCS; principal; 2021-06-22)
DX: K57.92 Diverticulitis of intestine, part unspecified, without perforation or abscess without bleeding (principal)
CPT/HCPCS: 36415; 74177-TC; 80053; 81003; 83605; 83690; 83735; 84703; 85025; 85610; 85730; 86850; 86900; 86901; 87086; 87186; 93005; 93010; 99285-25; Q9967